=== PATIENT | female | born 1950 | race Caucasian/White ===

== ENCOUNTER 2016-09-18 06:53 | Day surgery (SDC) | payer BC ==
[2016-09-17 10:15] VITALS: BMI 26.7
[2016-09-18 09:06] VITALS: PULSE 60
[2016-09-18 10:16] VITALS: BP 122/77; TEMP 98.4
--- NOTE | 2016-09-21 13:43 | PATH ---
Surgical Pathology Report Patient Name: MARIELOS ZUÑIGA [facility]. Rec. #: [id number] /Age/Gender: 1950 (Age: 65) / F Account: [id number] Location: [facility]-ENDOSCOPY Taken: 09/18/2016 Received: 09/18/2016 Reported: 09/21/2016 Physicians: Lisseth Davis M.D. Specimen(s) Received A: BIOPSY POLYP SIGMOID COLON B: BX SIGMOID COLON PREVIOUS POLYP SITE Clinical History Dysplastic adenoma followup Colon polyp Final Diagnosis A. COLON, SIGMOID, POLYP, BIOPSY: HYPERPLASTIC POLYP. B. COMMON, SIGMOID, PREVIOUS POLYP SITE, BIOPSY: COLONIC MUCOSA WITH FOCAL REACTIVE LYMPHOID AGGREGATES, LAMINA PROPRIA EDEMA, AND FOCAL SURFACE HYPERPLASTIC CHANGE. NO EVIDENCE OF DYSPLASIA/ADENOMA. Electronically Signed Kuldip Cisneros M.D. Gross Description A. Received in formalin, labeled "polyp sigmoid colon" is a gastelum, irregular portion of soft tissue measuring 0.2 cm in greatest dimension. The specimen is submitted in toto in one cassette. B. Received in formalin, labeled "biopsy sigmoid previous polyp site" are 5 gastelum, irregular portions of soft tissue ranging from 0.1-0.6 cm in greatest dimension. The specimens are submitted in toto in one cassette. 09/18/201609/18/2016
== END 2016-09-18 10:00 | disposition home or self-care (01) ==
LOC: JASU-ENDO 06:53
PROVIDERS: ATTEND Internal Medicine Gastroenterology
PROC: 0DBN8ZX Excision of Sigmoid Colon, Via Natural or Artificial Opening Endoscopic, Diagnostic (ICD-10-PCS; principal; 2016-09-18 08:00)
DX: Z86.010 Personal history of colon polyps (principal); D12.5 Benign neoplasm of sigmoid colon; K57.30 Diverticulosis of large intestine without perforation or abscess without bleeding; K64.8 Other hemorrhoids
CPT/HCPCS: 88305-TC

== ENCOUNTER 2021-12-08 09:17 | Emergency (ER) | payer BC ==
[2021-12-08 09:35] VITALS: BP 150/78; PULSE 66; TEMP 97.4; BMI 24.7
[2021-12-08 10:31] LABS: BASO % 1.2 % (0-2.0); EOS % 2.2 % (0-4.5); HEMATOCRIT 41.1 % (32.4-45.2); HEMOGLOBIN 14.5 GM/dL (10.7-15.3); LYMPH % 34.9 % (8-40); MCH 32.9 pg (25.7-33.7); MCHC 35.3 g/dl (32.0-36.0); MEAN CELL VOLUME 93.3 fl (80-96); MEAN PLT VOLUME 8.2 fl (7.5-11.1); MONO % 6.6 % (3.8-10.2); NEUT % 55.1 % (42.8-82.8); PLATELET COUNT 196 10^3/uL (134-434); RBC 4.41 M/mm3 (3.60-5.2); RDW 14.1 % (11.6-15.6); WHITE BLOOD COUNT 4.6 K/mm3 (4.0-10.0)
[2021-12-08 10:49] LABS: CALCIUM 8.9 mg/dL (8.5-10.1)
[2021-12-08 10:50] LABS: BLOOD UREA NITROGEN 14.4 mg/dL (7-18)
[2021-12-08 10:53] LABS: CREATININE 0.9 mg/dL (0.55-1.3)
== END 2021-12-08 12:32 | disposition home or self-care (01) ==
LOC: JERFT 09:17
DX: L03.211 Cellulitis of face (principal)
CPT/HCPCS: 36415; 70487-TC; 80048; 85025; 99285-25; Q9967

== ENCOUNTER 2025-03-08 08:53 | Emergency (ER) | payer OTHER, BC ==
[2025-03-08 10:40] VITALS: RESP 18; BMI 26.5
[2025-03-08] MEDS ORDERED: FAMOTIDINE 20 MG/50 ML IVPB 20 MG/50 ML MG IVPB ONE (11:01)
[2025-03-08] MEDS ORDERED: ACETAMINOPHEN INJECTION 100 ML ONE (11:01)
[2025-03-08] MEDS: LACTATED RINGERS SOLUTION 1000 ML INFUS.BAG IV ONE (11:40)
[2025-03-08] MEDS: ACETAMINOPHEN 1000 MG/100 ML BAG IVPB ONE (11:40)
[2025-03-08] MEDS: FAMOTIDINE 20 MG/50 ML IVPB 20 MG/50 ML MG IVPB ONE (11:40)
[2025-03-08 11:48] LABS: ABSOLUTE IMMATURE GRANULOCYTES 0.01 x10^3/uL (0.0-0.031); BASOPHILS # 0.03 x10^3/uL (0.01-0.08); EOSINOPHIL % 1.4 % (0.7-5.8); EOSINOPHILS # 0.08 x10^3/uL (0.04-0.36); MCHC 33.5 g/dl (32.2-35.5); MEAN CELL VOLUME 91.4 fl (79.4-94.8); MEAN PLT VOLUME 9.7 fl (9.4-12.3); MONOCYTE # 0.58 x10^3/uL (0.24-0.86); MONOCYTE % 10.2 % (4.7-12.5); RDW 13.5 % (12.4-16.6)
[2025-03-08 11:49] LABS: URINE APPEARANCE CLEAR; URINE BILIRUBIN NEGATIVE (NEGATIVE); URINE COLOR YELLOW; URINE GLUCOSE (UA) NEGATIVE (NEGATIVE); URINE KETONE NEGATIVE (NEGATIVE); URINE LEUK ESTERASE NEGATIVE (NEGATIVE); URINE NITRITE NEGATIVE (NEGATIVE); URINE PROTEIN NEGATIVE (NEGATIVE); URINE UROBILINOGEN 0.2 mg/dL (0.2-1.0)
[2025-03-08 11:57] LABS: INR 1.03 (0.83-1.09); PROTHROMBIN TIME (PATIENT) 11.3 SEC (9.7-13.0)
[2025-03-08 12:00] LABS: ACTIVATED PTT 29.2 SECONDS (25.2-36.5)
[2025-03-08 12:18] LABS: CO2 30.0 mmol/L (21-32); GLUCOSE,RANDOM 93.0 mg/dL (74-106)
[2025-03-08 12:21] LABS: CREATININE 0.9 mg/dL (0.55-1.3); SGOT/AST 19.0 U/L (15-37); SGPT/ALT 24.0 U/L (13-61)
[2025-03-08 12:23] LABS: TOT PROT 6.7 g/dl (6.4-8.2)
[2025-03-08 12:24] LABS: ALK PHOS 95.0 U/L (45-117)
[2025-03-08 13:13] LABS: HCV DIAGNOSTIC IN-HOUSE W/RFLX NON-REACTIVE (NONREACTIVE)
[2025-03-08 13:14] LABS: HIV INTERPRETATION NEGATIVE (NEGATIVE)
[2025-03-08] MEDS: IOHEXOL (OMNIPAQUE IV) 350 MG/ML - 100 ML BOTTLE PO ONE (13:21)
[2025-03-08] MEDS ORDERED: KETOROLAC TROMETHAMINE 15 MG/ML VIAL ONE (13:35)
[2025-03-08] MEDS: KETOROLAC TROMETHAMINE 15 MG/ML VIAL IVPUSH ONE (13:40)
[2025-03-08 13:52] VITALS: TEMP 97.7
[2025-03-08] MEDS ORDERED: valACYclovir HCL 500 MG TABLET (FP) ONE (16:25)
[2025-03-08] MEDS: valACYclovir HCL 500 MG TABLET (FP) PO SCH (16:31)
[2025-03-08] MEDS ORDERED: POTASSIUM CHLORIDE TABS 20 MEQ TABLET.ER (FP) PO ONE (17:03)
[2025-03-08] MEDS: POTASSIUM CHLORIDE ORAL LIQUID 20 MEQ/15 ML PO ONE (17:14)
[2025-03-08 17:16] VITALS: BP 155/72; PULSE 61
== END 2025-03-08 18:00 | disposition home or self-care (01) ==
LOC: JER 08:53
PROC: 3E033GC Introduction of Other Therapeutic Substance into Peripheral Vein, Percutaneous Approach (ICD-10-PCS; principal; 2025-03-08)
PROC: 3E033NZ Introduction of Analgesics, Hypnotics, Sedatives into Peripheral Vein, Percutaneous Approach (ICD-10-PCS; 2025-03-08)
PROC: 3E0333Z Introduction of Anti-inflammatory into Peripheral Vein, Percutaneous Approach (ICD-10-PCS; 2025-03-08)
DX: K52.9 Noninfective gastroenteritis and colitis, unspecified (principal); R10.13 Epigastric pain; R10.32 Left lower quadrant pain; R11.10 Vomiting, unspecified; R14.0 Abdominal distension (gaseous); K59.00 Constipation, unspecified; M54.50 Low back pain, unspecified; L98.9 Disorder of the skin and subcutaneous tissue, unspecified; R21 Rash and other nonspecific skin eruption; B02.9 Zoster without complications
CPT/HCPCS: 36415; 71045-TC-FY; 74177-TC; 76705-TC; 80053; 81003; 83690; 83735; 84484; 85025; 85610; 85730; 86803; 86850; 86900; 86901; 87086; 87389; 93005; 93010; 99285-25